=== PATIENT | male | born 1960 | race Caucasian/White ===

== ENCOUNTER 2018-01-23 16:32 | Emergency (ER) | payer SELFPAY ==
[2018-01-23] MEDS ORDERED: TETANUS & DIPHTHERIA TOX,ADULT 0.5 ML VIAL ONE ×2 (16:54→18:50)
[2018-01-23] MEDS ORDERED: LIDOCAINE 1% MPF 2 ML AMPULE ONE ×2 (17:04→17:06)
--- NOTE | 2018-01-23 18:26 | RAD REPORT ---
EXAM DESCRIPTION: RAD - Femur Left - 01/23/2018 5:30 pm CLINICAL HISTORY: Slip and fall, leg pain COMPARISON: None. FINDINGS: No fracture is identified. There is no dislocation or periosteal reaction noted. No acute or suspicious bony finding. No air or foreign body in the soft tissues. IMPRESSION: Negative left femur examination.
--- NOTE | 2018-01-23 19:28 | RAD REPORT ---
EXAM DESCRIPTION: CT - Head Brain Wo Cont - 01/23/2018 7:04 pm CLINICAL HISTORY: Slip and fall, pain to left earlobe and left-side of skull COMPARISON: None. TECHNIQUE: Axial 5 mm thick images of the head were obtained without IV contrast. All CT scans are performed using dose optimization technique as appropriate and may include automated exposure control or mA/KV adjustment according to patient size. FINDINGS: No intracranial hemorrhage, mass, edema or shift of mid-line structures. No acute infarcti on changes seen. No abnormal extra-axial fluid collections. Ventricles are normal. Physiologic calcif ications are present. No acute intracranial finding seen. Mastoid air cells are clear. No paranasal sinus abnormality. Soft tissues around the left year are no t fully assessed. No acute bony findings. IMPRESSION: No hemorrhage, edema or acute intracranial finding. Mastoid air cells are clear. No skull fracture.
[2018-01-23] MEDS ORDERED: DOXYCYCLINE 100 MG CAP PO ONE (19:37)
--- NOTE | 2018-01-23 19:37 | EDPHYS ---
Physician Documentation [facility] Name: Morenita Savage Age: 57 yrs Sex: Male : 1960 Arrival Date: 01/23/2018 Time: 16:36 Bed 13 Private MD: None, None ED Physician James Mascorro HPI: 01/23 17:48 This 57 yrs old Male presents to ER via Wheelchair with complaints of Fall pm1 Injury, Ear Injury. 17:48 Details of fall: The patient fell from an upright position, while standing. Onset: The pm1 symptoms/episode began/occurred just prior to arrival. Associated injuries: The patient sustained left ear lobe, laceration, lateral aspect of left thigh, contusion. The patient has not recently seen a physician. Patient was walking off his boat and slipped on the walkway when the boat moved away from the dock edge. Patient hit his head against the edge of the dock causing a laceration to his left ear. patient with contusion to left lateral thigh. witnessed fall by family. No headache, neck pain, vomiting, or LOC. Historical: - Allergies: 16:47 Codeine; aj - Home Meds: 16:47 None [Active]; aj - PMHx: 16:47 None; aj - PSHx: 16:47 CABG; aj - Immunization history: Last tetanus immunization: < 10 years ago. - Social history:: Smoking status: Patient uses tobacco products, smokes one-half pack cigarettes per day. - Ebola Screening: : No symptoms or risks identified at this time. ROS: 18:00 Constitutional: Negative for fever, chills, and weight loss, Eyes: Negative for injury, pm1 pain, redness, and discharge. 18:00 Neck: Negative for injury, pain, and swelling, Cardiovascular: Negative for chest pain, palpitations, and edema, Respiratory: Negative for shortness of breath, cough, wheezing, and pleuritic chest pain, Abdomen/GI: Negative for abdominal pain, nausea, vomiting, diarrhea, and constipation, Back: Negative for injury and pain, : Negative for injury, bleeding, discharge, and swelling. 18:00 Neuro: Negative for headache, weakness, numbness, tingling, and seizure. 18:00 ENT: Positive for left ear laceration, Negative for drainage from ear(s), hearing loss, Teeth pain 18:00 MS/extremity: Positive for contusion, pain, of the lateral aspect of left thigh. 18:00 Skin: Positive for laceration(s), of the left ear lobe. Exam: 18:00 Constitutional: This is a well developed, well nourished patient who is awake, alert, pm1 and in no acute distress. Eyes: Pupils equal round and reactive to light, extra-ocular motions intact. Lids and lashes normal. Conjunctiva and sclera are non-icteric and not injected. Cornea within normal limits. Periorbital areas with no swelling, redness, or edema. 18:00 Neck: Trachea midline, no thyromegaly or masses palpated, and no cervical lymphadenopathy. Supple, full range of motion without nuchal rigidity, or vertebral point tenderness. No Meningismus. Chest/axilla: Normal chest wall appearance and motion. Nontender with no deformity. No lesions are appreciated. Cardiovascular: Regular rate and rhythm with a normal S1 and S2. No gallops, murmurs, or rubs. No pulse deficits. Respiratory: Lungs have equal breath sounds bilaterally, clear to auscultation and percussion. No rales, rhonchi or wheezes noted. No increased work of breathing, no retractions or nasal flaring. Abdomen/GI: Soft, non-tender, with normal bowel sounds. No distension or tympany. No guarding or rebound. No evidence of tenderness throughout. Back: No spinal tenderness. No costovertebral tenderness. Full range of motion. 18:00 MS/ Extremity: Pulses equal, no cyanosis. Neurovascular intact. Full, normal range of motion. 18:00 Head/face: Exam is negative for frost signs, raccoon eyes, Noted is a laceration(s), 4 cm(s), of the left ear lobe. 18:00 ENT: External ear(s): laceration, that is irregular, approximately 4 cm(s), to the left ear lobe, 3 cm on anterior aspect of left lobe and 1 cm on posterior aspect of left lobe, Ear canal(s): are normal, TM's: are normal, Examination of the other ear shows no obvious abnormality, Nose: is normal. 18:00 Musculoskeletal/extremity: Extremities: noted in the left hip: There is no evidence of decreased ROM, deformity, pain, tenderness, Circulation is intact in all extremities. Sensation intact. 18:00 Skin: Appearance: normal except for affected area, contusion to left lateral thigh. 18:00 Neuro: Orientation: is normal, Motor: is normal, moves all fours, Sensation: is normal, no obvious gross deficits, Gait: is steady, at a normal pace, without difficulty. Vital Signs: 16:43 BP 141 / 104; Pulse 66; Resp 20; Temp 97.9; Pulse Ox 97% on R/A; Weight 76.2 kg; Height aj 5 ft. 10 in. (177.80 cm); 19:14 BP 184 / 113; Pulse 67; Resp 16; Pulse Ox 100% ; jl7 16:43 Body Mass Index 24.11 (76.20 kg, 177.80 cm) aj Clyman Coma Score: 16:43 Eye Response: spontaneous(4). Verbal Response: oriented(5). Motor Response: obeys aj commands(6). Total: 15. 19:30 Eye Response: spontaneous(4). Verbal Response: oriented(5). Motor Response: obeys ea commands(6). Total: 15. Trauma Score (Adult): 16:43 Eye Response: spontaneous(1); Verbal Response: oriented(1); Motor Response: obeys aj commands(2); Systolic BP: > 89 mm Hg(4); Respiratory Rate: 10 to 29 per min(4); Clyman Score: 15; Trauma Score: 12 Laceration: 18:30 Wound Repair of 4cm ( 1.6in ) subcutaneous laceration to left ear lobe. Irregularly pm1 shaped.. Distal neuro/vascular/tendon intact. Anesthesia: Auricular block with 8 mls of 1% lidocaine. Wound prep: Extensive cleansing with betadine by pa, Wound irrigation with saline by pa, Wound explored extensively, Copious irrigation. Skin closed with 12 7-0 Prolene using simple sutures and sterile technique. Dressed with Neosporin. Patient tolerated well. MDM: 16:56 Patient medically screened. pm1 17:48 Data reviewed: vital signs. Data interpreted: Pulse oximetry: on room air is 97 %. pm1 Interpretation: normal. 19:35 Counseling: I had a detailed discussion with the patient and/or guardian regarding: the pm1 historical points, exam findings, and any diagnostic results supporting the discharge/admit diagnosis, radiology results, the need for outpatient follow up, to return to the emergency department if symptoms worsen or persist or if there are any questions or concerns that arise at home. 19:35 ED course: patient is going deep sea fishing for the next three days. Recommended to pm1 patient that he should not be outside due to the risk of skin burning with doxycycline that needs to be given for saltwater injury. Patient reports that nothing is stopping him from going red snapper fishing. Recommended using multiple forms of sun blocking protection if he is going to go fishing regardless. 01/23 17:01 Order name: Femur Left XRAY; Complete Time: 19:31 pm1 01/23 18:35 Order name: CT Head Brain wo Cont; Complete Time: 19:31 pm1 01/23 17:01 Order name: Dressing - Wound; Complete Time: 17:04 pm1 01/23 17:01 Order name: Gloves, Sterile; Complete Time: 17:04 pm1 01/23 17:01 Order name: Setup Suture Tray; Complete Time: 17:05 pm1 Administered Medications: 18:20 Drug: Lidocaine (1 %) 5 ml {Note: administered by Gordo Carr NP.} Volume: 5 ml; jl7 Route: Infiltration; 18:53 Drug: Tetanus-Diphtheria Toxoid Adult 0.5 ml {[employer]: [employer]. Exp: jl7 03/27/2020. Lot #: [id number]. } Route: IM; Site: left deltoid; 19:33 Follow up: Response: No adverse reaction ea 19:38 Drug: Doxycycline 100 mg Route: PO; ea 19:50 Follow up: Response: No adverse reaction ea Disposition: 22:18 Co-signature as Attending Physician, James Mascorro MD I agree with the assessment and kdr plan of care. Disposition: 01/23/18 19:36 Discharged to Home. Impression: Laceration without foreign body of left ear, Other slipping, tripping and stumbling and falls, Contusion of left lower leg. - Condition is Stable. - Discharge Instructions: Contusion, Laceration Care, Adult. - Prescriptions for Doxycycline Hyclate 100 mg Oral Tablet - take 1 tablet by ORAL route every 12 hours; 20 tablet. - Medication Reconciliation Form, Thank You Letter, Antibiotic Education form. - Follow up: Emergency Department; When: As needed; Reason: Worsening of condition. Follow up: Private Physician; When: 10 days; Reason: Recheck today's complaints, Continuance of care, Staple/Suture removal, Re-evaluation by your physician. - Problem is new. - Symptoms have improved. Signatures: Dispatcher [employer] EDMS Rianna Dotson, RN RN James Adam MD MD kdr Marinas, Patrick, HAND OUTSIDE CUTTER HAND OUTSIDE CUTTER pm1 Issac Mohan RN RN jl7 Geneva Moya RN RN ea Corrections: (The following items were deleted from the chart) 19:37 19:36 01/23/2018 19:36 Discharged to Home. Impression: Laceration without foreign body pm1 of left ear; Other slipping, tripping and stumbling and falls. Condition is Stable. Discharge Instructions: Contusion, Laceration Care, Adult. Prescriptions for Doxycycline Hyclate 100 mg Oral Tablet - take 1 tablet by ORAL route every 12 hours; 20 tablet. and Forms are Medication Reconciliation Form, Thank You Letter, Antibiotic Education, Prescription Opioid Use. Follow up: Emergency Department; When: As needed; Reason: Worsening of condition. Follow up: Private Physician; When: 2 - 3 days; Reason: Recheck today's complaints, Continuance of care, Re-evaluation by your physician. Problem is new. Symptoms have improved. pm1 19:38 19:37 01/23/2018 19:36 Discharged to Home. Impression: Laceration without foreign body pm1 of left ear; Other slipping, tripping and stumbling and falls; Contusion of left lower leg. Condition is Stable. Discharge Instructions: Contusion, Laceration Care, Adult. Prescriptions for Doxycycline Hyclate 100 mg Oral Tablet - take 1 tablet by ORAL route every 12 hours; 20 tablet. and Forms are Medication Reconciliation Form, Thank You Letter, Antibiotic Education, Prescription Opioid Use. Follow up: Emergency Department; When: As needed; Reason: Worsening of condition. Follow up: Private Physician; When: 2 - 3 days; Reason: Recheck today's complaints, Continuance of care, Re-evaluation by your physician. Problem is new. Symptoms have improved. pm1 19:52 19:38 01/23/2018 19:36 Discharged to Home. Impression: Laceration without foreign body ea of left ear; Other slipping, tripping and stumbling and falls; Contusion of left lower leg. Condition is Stable. Discharge Instructions: Contusion, Laceration Care, Adult. Prescriptions for Doxycycline Hyclate 100 mg Oral Tablet - take 1 tablet by ORAL route every 12 hours; 20 tablet. and Forms are Medication Reconciliation Form, Thank You Letter, Antibiotic Education. Follow up: Emergency Department; When: As needed; Reason: Worsening of condition. Follow up: Private Physician; When: 10 days; Reason: Recheck today's complaints, Continuance of care, Staple/Suture removal, Re-evaluation by your physician. Problem is new. Symptoms have improved. pm1
--- NOTE | 2018-01-23 19:37 | ER ---
Nurse's Notes [facility] Name: Morenita Savage Age: 57 yrs Sex: Male : 1960 Arrival Date: 01/23/2018 Time: 16:36 Bed 13 Private MD: None, None Diagnosis: Laceration without foreign body of left ear;Other slipping, tripping and stumbling and falls;Contusion of left lower leg Presentation: 01/23 16:43 Presenting complaint: Patient states: Slip and fall onto dock just [employer]. Patient reports aj pain to left earlobe and bruise to left lateral thigh. Care prior to arrival: None. Mechanism of Injury: Fall from standing position. Trauma event details: Injury occurred in the [facility], Injury occurred: at home. Injury occurred: January 23, 2018 Injury occurred at: 16:44. 16:43 Acuity: NUNU 4 aj 16:43 Method Of Arrival: Wheelchair aj 16:46 Transition of care: patient was not received from another setting of care. Onset of aj symptoms was January 23, 2018. 17:18 Risk Assessment: Do you want to hurt yourself or someone else? Patient reports no jl7 desire to harm self or others. Initial Sepsis Screen: Does the patient meet any 2 criteria? No. Patient's initial sepsis screen is negative. Does the patient have a suspected source of infection? No. Patient's initial sepsis screen is negative. Trauma Activation: Not Applicable Physician: ED Physician; Name: ; Notified At: ; Arrived At: Physician: General Surgeon; Name: ; Notified At: ; Arrived At: Physician: Radiology; Name: ; Notified At: ; Arrived At: Physician: Respiratory; Name: ; Notified At: ; Arrived At: Physician: Lab; Name: ; Notified At: ; Arrived At: Historical: - Allergies: 16:47 Codeine; aj - Home Meds: 16:47 None [Active]; aj - PMHx: 16:47 None; aj - PSHx: 16:47 CABG; aj - Immunization history: Last tetanus immunization: < 10 years ago. - Social history:: Smoking status: Patient uses tobacco products, smokes one-half pack cigarettes per day. - Ebola Screening: : No symptoms or risks identified at this time. Screenin:11 Abuse screen: Denies threats or abuse. Denies injuries from another. Tuberculosis jl7 screening: No symptoms or risk factors identified. 17:18 Nutritional screening: No deficits noted. Fall Risk None identified. jl7 Primary Survey: 16:43 Breathing/Chest: Respiratory pattern: regular, Respiratory effort: spontaneous, aj unlabored, Breath sounds: clear, bilaterally. Chest inspection: symmetrical rise and fall of the chest. Circulation: Skin color: pink. Disability Alert. 17:11 Reassessment Airway Airway Patent Breathing/Chest Respiratory pattern Regular jl7 Respiratory effort Spontaneous Unlabored Breath sounds Clear Chest inspection Symmetrical Circulation Color Mcfarlan Disability Alert. Secondary Survey: 17:11 HEENT: Ears: bleeding noted from left ear lobe. Gastrointestinal: No deficits noted. jl7 : No deficits noted. Musculoskeletal: bruising and swelling noted to left anterior thigh. Assessment: 16:43 General: Appears in no apparent distress. comfortable, Behavior is calm, cooperative, aj appropriate for age. Pain: Complains of pain in lateral aspect of left thigh. Neuro: Level of Consciousness is awake, alert, obeys commands, Oriented to person, place, time, situation, Appropriate for age. Respiratory: Airway is patent Respiratory effort is even, unlabored, Respiratory pattern is regular, symmetrical. Derm: Skin is intact, is healthy with good turgor, Skin is pink, warm \T\ dry. normal. Musculoskeletal: Reports pain in lateral aspect of left thigh. Injury Description: Laceration sustained to left ear. 18:00 Reassessment: No changes from previously documented assessment. Patient and/or family jl7 updated on plan of care and expected duration. Pain level reassessed. Patient is alert, oriented x 3, equal unlabored respirations, skin warm/dry/pink. 18:56 Reassessment: Pt awaiting CT. jl7 19:15 Reassessment: Provider notified of elevated BP, provider will be to bedside jl7 momentarily, no new orders received at this time. 19:45 General: Appears in no apparent distress. Behavior is calm. Pain: Complains of pain in ea lateral aspect of left thigh. Neuro: Level of Consciousness is awake, alert, obeys commands, Oriented to person, place, time, situation, Appropriate for age. Cardiovascular: Patient's skin is warm and dry. Respiratory: Airway is patent Respiratory effort is even, unlabored, Respiratory pattern is regular, symmetrical. Respiratory: Airway is patent Respiratory effort is even, unlabored, Respiratory pattern is regular, symmetrical. Derm: Skin is pink, warm \T\ dry. Musculoskeletal: No signs and/or symptoms reported regarding the musculoskeletal system. 19:52 Reassessment: Patient and/or family updated on plan of care and expected duration. Pain ea level reassessed. Patient is alert, oriented x 3, equal unlabored respirations, skin warm/dry/pink. Discharge instructions given to patient, verbalized the understanding of instruction. Patient states feeling better. Patient states symptoms have improved. Vital Signs: 16:43 BP 141 / 104; Pulse 66; Resp 20; Temp 97.9; Pulse Ox 97% on R/A; Weight 76.2 kg; Height aj 5 ft. 10 in. (177.80 cm); 19:14 BP 184 / 113; Pulse 67; Resp 16; Pulse Ox 100% ; jl7 16:43 Body Mass Index 24.11 (76.20 kg, 177.80 cm) aj Jenniffer Coma Score: 16:43 Eye Response: spontaneous(4). Verbal Response: oriented(5). Motor Response: obeys aj commands(6). Total: 15. 19:30 Eye Response: spontaneous(4). Verbal Response: oriented(5). Motor Response: obeys ea commands(6). Total: 15. Trauma Score (Adult): 16:43 Eye Response: spontaneous(1); Verbal Response: oriented(1); Motor Response: obeys aj commands(2); Systolic BP: > 89 mm Hg(4); Respiratory Rate: 10 to 29 per min(4); [place] Score: 15; Trauma Score: 12 ED Course: 16:36 Patient arrived in ED. mr 16:36 None, None is Private Physician. mr 16:44 Triage completed. aj 16:47 Arm band placed on left wrist. Patient placed in an exam room. aj 16:50 Gordo Carr NP is PHCP. pm1 16:50 James Mascorro MD is Attending Physician. pm1 17:04 Issac Mohan RN is Primary Nurse. jl7 17:11 Patient has correct armband on for positive identification. Bed in low position. Call jl7 light in reach. Side rails up X 1. 17:11 Patient maintains SpO2 saturation greater than 95% on room air. Thermoregulation: pt jl7 refused warm blanket. 17:29 X-ray completed. Portable x-ray completed in exam room. Patient tolerated procedure kc2 well. 17:30 Femur Left XRAY In Process Unspecified. EDMS 18:20 Assist provider with laceration repair on left ear lobe that was between 2.6 to 7.5 cm jl7 using sutures. Set up tray. Performed by Gordo Carr NP Patient tolerated well. 18:[address] [facility] 19:04 CT completed. Patient tolerated procedure well. Patient moved back from CT. 19:04 CT Head Brain wo Cont In Process Unspecified. EDMS 19:17 Report given to IRISH Bean. jl7 19:51 Patient did not have IV access during this emergency room visit. ea Administered Medications: 18:20 Drug: Lidocaine (1 %) 5 ml {Note: administered by Gordo Carr NP.} Volume: 5 ml; jl7 Route: Infiltration; 18:53 Drug: Tetanus-Diphtheria Toxoid Adult 0.5 ml {[employer]: [employer]. Exp: jl7 03/27/2020. Lot #: [id number]. } Route: IM; Site: left deltoid; 19:33 Follow up: Response: No adverse reaction ea 19:38 Drug: Doxycycline 100 mg Route: PO; ea 19:50 Follow up: Response: No adverse reaction ea Intake: 17:11 PO: 0ml; Total: 0ml. jl7 Outcome: 19:36 Discharge ordered by MD. pm1 19:50 Discharged to home ambulatory. ea 19:50 Condition: improved 19:50 Discharge instructions given to patient, Instructed on discharge instructions, follow up and referral plans. medication usage, Demonstrated understanding of instructions, follow-up care, medications, Prescriptions given X 1. 19:51 Patient's length of stay was not longer than 2 hours. ea 19:52 Patient left the ED. ea Signatures: Dispatcher [employer] EDMS Rianna Dotson, Ju Rose RN mr [place]ópez Gordo Carr NP METAL POURER pm1 Bhumi Tolentino 2 Issac Mohan RN RN jl7 Saskia Barreto 2 Geneva Moya RN RN ea
== END 2018-01-23 19:52 | disposition home or self-care (01) ==
LOC: ER 16:32
PROC: 0HQ3XZZ Repair Left Ear Skin, External Approach (ICD-10-PCS; principal; 2018-01-23)
DX: S01.312A Laceration without foreign body of left ear, initial encounter (principal); S70.12XA Contusion of left thigh, initial encounter; W01.198A Fall on same level from slipping, tripping and stumbling with subsequent striking against other object, initial encounter; Y93.89 Activity, other specified; Y92.814 Boat as the place of occurrence of the external cause; Z95.1 Presence of aortocoronary bypass graft; Z88.5 Allergy status to narcotic agent; Z23 Encounter for immunization; F17.210 Nicotine dependence, cigarettes, uncomplicated
CPT/HCPCS: 70450; 90714; 99285; J2001